=== PATIENT | male | born 1980 | race Caucasian/White ===

== ENCOUNTER 2024-06-13 05:31 | Emergency (ER) | payer MEDICAID ==
[~2024-06-13] VITALS: Ht 195.6 cm; Wt 75.4 kg
[~2024-06-13 05:31] MED LIST: ACET-1008 PO; AZIT-164 PO; BENZ0.5T44 PO; DULO-31 PO; FOLI1TAB27 PO; MIRT45TA79 PO; NO HOME MEDS; OLAN5TAB3 PO; THIA50TA10 PO
[2024-06-13 05:34] VITALS: BP 127/95; PULSE 98; RESP 15; O2SAT 98
[2024-06-13 06:19] VITALS: TEMP 96.8
== END 2024-06-13 06:26 | disposition home or self-care (01) ==
LOC: ER 05:31
DX: M25.561 Pain in right knee (principal); Z91.041 Radiographic dye allergy status; Z79.1 Long term (current) use of non-steroidal anti-inflammatories (NSAID)
CPT/HCPCS: 73560; 99283

== ENCOUNTER 2024-07-05 14:09 | Emergency (ER) | payer MEDICAID ==
[~2024-07-05] VITALS: Ht 195.6 cm; Wt 77.3 kg
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
[2024-07-05] MEDS: OLANZapine **IM** 10 mg inj. IM ONE (14:29)
[2024-07-05] MEDS: LIDOcaine 1% W/epiNEPHrine 1:100,000 20ml vial SQ ONE (14:31)
[2024-07-05] MEDS: TETanus/Pertussis (Acell)/Diphther VAC/PF (Tdap-Adult) 0.5ml syringe IMVAC ONE (14:31)
[2024-07-05] MEDS: LIDOcaine 1% W/epiNEPHrine 1:100,000 20ml vial IJ ONE (14:33)
[2024-07-05 14:52] VITALS: BP 128/78; PULSE 80; RESP 18; TEMP 98.5; O2SAT 98
== END 2024-07-05 14:50 ==
LOC: ER 14:10 → EEVIPCON 14:10 → ER 14:50
DX: S01.412A Laceration without foreign body of left cheek and temporomandibular area, initial encounter (principal); Z91.041 Radiographic dye allergy status; Z79.1 Long term (current) use of non-steroidal anti-inflammatories (NSAID); Z79.899 Other long term (current) drug therapy; X58.XXXA Exposure to other specified factors, initial encounter; Y93.89 Activity, other specified; Y92.89 Other specified places as the place of occurrence of the external cause; Y99.8 Other external cause status
CPT/HCPCS: 12013; 90471; 90715; 96372; 99284; J3490; J7120

== ENCOUNTER 2024-07-27 13:13 | Emergency (ER) | payer MEDICAID ==
[~2024-07-27] VITALS: Ht 195.6 cm; Wt 90.9 kg
[2024-07-27] MEDS: LIDOcaine 1% W/epiNEPHrine 1:100,000 20ml vial SQ ONE (14:02)
--- NOTE | 2024-07-27 14:10 | Physician Documentation ---
History of Present Illness ~ Chief Complaint: Medical Clearance Stated Complaint: MED CLEARANCE Time Seen by MD: 13:21 HPI Patient is seen today with complaints of laceration to his right cheek just under his eye without any involvement of the eyelid. Patient was brought in in police custody to be cleared for penitentiary. Patient has no other concern or complaint at this time. Patient denies any loss of consciousness or traumatic brain injury or loss of memory or headache or chest pain or shortness of breath or abdominal pain or nausea, vomiting, diarrhea. Patient has no other concern or complaint at this time. Tetanus within 5 years?: Yes (2024) Medication Reconciliation Allergies: Coded Allergies: Penicillins (Unverified Allergy, Unknown, 07/27/24) iodine (Unverified Adverse Reaction, Intermediate, blisters on skin, 06/13/24) Scheduled Acetaminophen (Tylenol), 650 MG PO Q4H PRN PAIN, (Reported) Acetaminophen (Tylenol), 650 MG PO Q4H PRN PAIN, (Reported) Acetaminophen (Tylenol), 650 MG PO Q6H PRN TEMPERATURE, (Reported) Acetaminophen (Tylenol), 650 MG PO Q6H PRN PAIN, (Reported) Azithromycin (Zithromax), 1 TAB PO DAILY Benztropine Mesylate (Benztropine Mesylate), 1 TAB PO HS, (Reported) Duloxetine Hcl* (Cymbalta*), 60 MG PO DAILY, (Reported) Folic Acid* (Folic Acid*), 1 MG PO DAILY Mirtazapine (Mirtazapine), 1 TAB PO HS, (Reported) Olanzapine (Zyprexa), 1 TAB PO BID, (Reported) Thiamine HCl (Vitamin B-1), 2 TAB PO DAILY Scheduled PRN Acetaminophen (Tylenol), 1 TAB PO Q4HPRN PRN for pain or fever, (Reported) Miscellaneous Medications Home Med List (No Home Medications), (Reported) Past Medical History Patient History: FH: heart disease Paternal Grandfather Review of Systems Constitutional: Denies: chills, fever, weakness Eyes: Denies: pain, blurred vision ENT: Denies: ear pain, nose pain, throat pain, mouth pain Respiratory: Denies: cough, shortness of breath Cardiovascular: Denies: chest pain, palpitations Gastrointestinal: Denies: abdominal pain, nausea, vomiting Genitourinary: Denies: burning, dysuria Male Genitalia: Denies: penile discharge, testicular pain Neurological: Denies: headache, dizziness Musculoskeletal: Denies: pain, swelling Integumentary: Denies: rash, lesions Allergic/Immunologic: Denies: hives, itching Hematologic/Lymphatic: Denies: no symptoms reported Psychiatric: Denies: depression, anxiety Physical Exam Vital Signs: Temperature: 98.0, Source: Temporal, Heart Rate: 97, Respiratory Rate: 16, BP: 113/71, Pulse Oximetry: 98, Weight: 90.910 Oxygen Flow Rate: 0 Physical Exam General: Awake and Alert, no acute distress. HEENT: Conjunctiva pink, Sclera clear, Mucus Membranes moist. Neck: Supple without masses and tenderness. Resp: Unlabored. Lungs clear to auscultation bilaterally. Heart: Regular Rate and rhythm, normal S1 and S2 without murmur, rub or gallop. Abdomen: Soft and non tender no organomegaly Extremities: No cyanosis,clubbing or edema. Skin: Patient on exam does have 2.5 cm laceration just inferior to right eye without involvement of the eye lid of the right cheek. Bleeding is well controlled. Procedures Laceration/Wound Repair Laceration/Wound Repair : Procedure Note Procedure note: 3 cc of 1% lidocaine with epinephrine was used to achieve local anesthesia of the 2.5 cm laceration below the right eye. Patient tolerated well. Wound was irrigated with copious amounts of normal saline. Running stitch was used to achieve closure. Nonadhesive dressing with bulky bandage applied to cover repair site. Progress Results/Orders Results/Orders Completed Orders - TANESHA SHAW PAC Lidocaine 1% W/Epi 1:100,000 (Xylocaine (07/27/24 13:25) Vital Signs 07/27/24 13:14 Temp 98.0 Pulse 97 Resp 16 B/P (MAP) 113/71 Pulse Ox 98 O2 Flow Rate 0 Medical Decision Making Findings Patient is seen today with complaints of laceration to his right cheek just under his eye without any involvement of the eyelid. Patient was brought in in police custody to be cleared for penitentiary. Patient has no other concern or complaint at this time. Patient denies any loss of consciousness or traumatic brain injury or loss of memory or headache or chest pain or shortness of breath or abdominal pain or nausea, vomiting, diarrhea. Patient has no other concern or complaint at this time. Patient is cleared for incarceration from a medical standpoint and is cleared from laceration that was repaired today. Sutures will need to be removed in seven days. Patient may return to ED or have them removed by his primary care or at the penitentiary. Return to ED with any worsening, concerning or changing symptoms. Departure Disposition: HOME / SELF CARE / HOMELESS Impression: Primary Impression: Laceration Additional Impression: General medical exam Condition: Improved Discharge Instructions: Facial Laceration, [id number], Medical Screening Exam Additional Instructions: Patient is cleared for incarceration from a medical standpoint and is cleared from laceration that was repaired today. Sutures will need to be removed in seven days. Patient may return to ED or have them removed by his primary care or at the penitentiary. Return to ED with any worsening, concerning or changing symptoms. Referrals: NO PRIMARY CARE PROVIDER (PCP) Signature Scribe Signature: No scribe Attestation: No scribe TANESHA SHAW PAC July 27, 2024 14:10
[2024-07-27 14:17] VITALS: BP 102/55; PULSE 71; RESP 16; TEMP 98; O2SAT 98
== END 2024-07-27 14:17 | disposition home or self-care (01) ==
LOC: ER 13:14
DX: S01.411A Laceration without foreign body of right cheek and temporomandibular area, initial encounter (principal); Z88.0 Allergy status to penicillin; Z91.041 Radiographic dye allergy status; Z79.899 Other long term (current) drug therapy; X58.XXXA Exposure to other specified factors, initial encounter; Y93.89 Activity, other specified; Y92.89 Other specified places as the place of occurrence of the external cause; Y99.8 Other external cause status
CPT/HCPCS: 12011; 99283; A6449

== ENCOUNTER 2025-01-16 20:00 | Emergency (ER) | payer MEDICAID ==
[~2025-01-16] VITALS: Ht 195.6 cm; Wt 78.0 kg
[2025-01-16 20:32] VITALS: BP 156/98; PULSE 87; RESP 15; TEMP 97.6; O2SAT 99
--- NOTE | 2025-01-16 21:16 | Physician Documentation ---
History of Present Illness ~ Chief Complaint: Leg Pain Stated Complaint: RIGHT LEG PAIN Time Seen by MD: 21:37 HPI Is a 44-year-old male that presents to the emergency department for evaluation of right leg pain. Patient reports of the leg pain has been present for several months. Patient denies any new injury or trauma. Patient denies any other symptoms at this time. Tetanus witin 5 years: Yes (2024) Medication Reconciliation Allergies: Coded Allergies: Penicillins (Unverified Allergy, Unknown, 01/16/25) iodine (Unverified Adverse Reaction, Intermediate, blisters on skin, 01/16/25) Scheduled Acetaminophen (Tylenol), 650 MG PO Q4H PRN PAIN, (Reported) Acetaminophen (Tylenol), 650 MG PO Q4H PRN PAIN, (Reported) Acetaminophen (Tylenol), 650 MG PO Q6H PRN TEMPERATURE, (Reported) Acetaminophen (Tylenol), 650 MG PO Q6H PRN PAIN, (Reported) Azithromycin (Zithromax), 1 TAB PO DAILY Benztropine Mesylate (Benztropine Mesylate), 1 TAB PO HS, (Reported) Duloxetine Hcl* (Cymbalta*), 60 MG PO DAILY, (Reported) Folic Acid* (Folic Acid*), 1 MG PO DAILY Mirtazapine (Mirtazapine), 1 TAB PO HS, (Reported) Olanzapine (Zyprexa), 1 TAB PO BID, (Reported) Thiamine HCl (Vitamin B-1), 2 TAB PO DAILY Scheduled PRN Acetaminophen (Tylenol), 1 TAB PO Q4HPRN PRN for pain or fever, (Reported) Miscellaneous Medications Home Med List (No Home Medications), (Reported) Past Medical History Patient History: FH: heart disease Paternal Grandfather Review of Systems ROS As stated above in the HPI, otherwise all systems are reviewed and negative. Physical Exam Vital Signs: Temperature: 97.6, Source: Temporal, Heart Rate: 87, Respiratory Rate: 15, BP: 156/98, Pulse Oximetry: 99, Weight: 78.000 Physical Exam VITALS: Reviewed and as above. GENERAL: Alert, no apparent distress. HEENT: Normocephalic, atraumatic, PERRL, EOMI, dry mucosa, no erythema RESPIRATORY: Lungs clear, normal breath sounds, no respiratory distress. CHEST: No accessory muscle use, no retractions CV: Regular rate, rhythm, no edema, no murmur, No: JVD GI: Soft, non-tender, bowels sounds present, no rebound, guarding, or rigidity BACK: No CVA tenderness, or swelling MUSCULOSKELETAL No deformities, no edema SKIN: Warm and dry, no rash NEURO: Oriented x4, No motor or sensory deficit PSYCH: Normal mood and affect, no agitation Progress Results/Orders Results/Orders Vital Signs 01/16/25 20:32 Temp 97.6 Pulse 87 Resp 15 B/P (MAP) 156/98 Pulse Ox 99 Medical Decision Making Additional information obtaine: other Findings 44-year-old male presented for evaluation of chronic right lower tibia and fibula pain persisting for approximately three months. Patient denies trauma, cannot localize pain, and reports no focal tenderness or pain on palpation. No pain medication has been used, and patient does not desire analgesics. On arrival, patient was found sleeping and was difficult to arouse, but became alert with effort. Vital signs are stable and appropriate. Assessment: Chronic lower leg pain in adults may result from a variety of etiologies, including musculoskeletal (e.g., stress fracture, arthritis), vascular (e.g., peripheral artery disease [PAD], venous insufficiency), and neurologic causes ( e.g., nerve entrapment, radiculopathy).The absence of trauma, focal tenderness, and normal physical exam reduce the likelihood of acute fracture, compartment syndrome, or focal soft tissue injury. No findings suggestive of PAD (e.g., claudication, abnormal pulses, ischemic skin changes) or venous disease (e.g., edema, skin changes) were noted.Neurologic causes remain possible but are less likely given the lack of focal symptoms. Medical decision-making: Comprehensive history and physical examination did not reveal evidence of acute pathology requiring intervention. No imaging or laboratory studies were indicated based on current presentation and guidelines. Patient is currently asymptomatic except for chronic pain, with no red flag symptoms (e.g., fever, f ocal neurologic deficit, signs of infection, vascular compromise). Disposition: Patient is medically stable for discharge. He was counseled to follow up with his primary care provider for further outpatient evaluation, including consideration of musculoskeletal and neurologic etiologies if symptoms persist.Return precautions were discussed: patient should return to the emergency department for worsening pain, new focal symptoms, inability to ambulate, or any other concerning developments. Shared decision-making: Patient understands and agrees with the plan. No pain medication requested or provided. General Diff Dx:Considerations: Include: Abrasion, Contusion, Fracture, Hematoma, Laceration, Malunion, Neurovascular injury, Open fracture, Sprain, Ulcer, Other Knee Diff Dx:Considerations: Include: Abrasion, Arthritis, Contusion, DJD, Fracture-femur, Fracture-fibula, Fracture-patella, Fracture-tibia, Gout, Hematoma, Laceration, Meniscus injury, Neurovascular injury, Open fracture, Rheumatoid arthritis, Septic, Sprain, Sprain-MCL, Sprain-LCL, Sprain-ACL, Sprain-PCL, Other Ankle Diff Dx:Considerations: Include: Abrasion, Arthritis, Contusion, DJD, Fracture-metatarsal, Fracture-fibula, Fracture-tarsal, Fracture-tibia, Gout, Hematoma, Laceration, Malunion, Neurovascular injury, Nonunion, Open fracture, Osteomyelitis, Rheumatoid arthritis, Sprain, Septic, Ulcer, Other Foot Diff Dx:Considerations: Include: Abrasion, Arthritis, Cellulitis, Contusion, Dislocation, DJD, Fracture-metatarsal, Fracture-phalynx, Fracture- tarsal, Gout, Hematoma, Ingrown toenail, Laceration, Malunion, Neurovascular injury, Open fracture, Paronychia, Puncture, Rheumatoid, Sprain, Septic, Subungual hematoma, Ulcer, Other Toe Diff Dx:Considerations: Include: Abrasion, Cellulitis, Contusion, Dislocation, Felon, Fracture, Hematoma, Laceration, Neurovascular injury, Open fracture, Paronychia, Subungual hematoma, Other Departure Disposition: 01 HOME / SELF CARE / HOMELESS Impression: Primary Impression: Superficial bruising Condition: Stable Discharge Instructions: RICE Therapy for Routine Care of Injuries, [id number] Additional Instructions: You came to the emergency department for pain in your right lower leg that has lasted about three months. There was no injury, and the exam did not show any areas of tenderness or swelling. You do not want pain medication at this time. What to expect: Most causes of long-lasting leg pain without injury or swelling are not serious and can be managed at home. It is important to rest your leg and avoid activities that make the pain worse. If you notice swelling, redness, warmth, or changes in skin color, let your doctor know. What you should do next: Follow up with your primary care provider for further evaluation. They may recommend tests or refer you to a specialist if needed. If you develop new symptoms, such as severe pain, inability to walk, fever, numbness, weakness, or changes in skin color, return to the emergency department right away. General advice: You do not need to take pain medication unless you want to. Try gentle stretching or rest as needed. Keep track of your symptoms and let your doctor know if anything changes. If you have any questions or concerns, or if your symptoms get worse, please come back to the emergency department or contact your doctor. Referrals: NO PRIMARY CARE PROVIDER (PCP) Education Educated: Patient Educated regarding: diagnosis, treatment, need for follow up Signature Scribe Signature: A Attestation: Scribed for Alyssa Diamond by MONICA Guo . 01/16/25 22:27 ALYSSA DIAMOND Jan 16, 2025 21:16
== END 2025-01-16 22:53 | disposition home or self-care (01) ==
LOC: ER 20:00
DX: S80.11XA Contusion of right lower leg, initial encounter (principal); Z88.0 Allergy status to penicillin; Z88.8 Allergy status to other drugs, medicaments and biological substances; X58.XXXA Exposure to other specified factors, initial encounter; Y93.89 Activity, other specified; Y92.89 Other specified places as the place of occurrence of the external cause; Y99.8 Other external cause status
CPT/HCPCS: 99282

== ENCOUNTER 2025-02-01 23:34 | Emergency (ER) | payer MEDICAID ==
[~2025-02-01] VITALS: Ht 195.6 cm; Wt 91.4 kg
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
[2025-02-01 23:46] VITALS: BP 132/92; PULSE 103; RESP 18; O2SAT 92
== END 2025-02-02 00:01 ==
LOC: ER 23:34
DX: S40.021A Contusion of right upper arm, initial encounter (principal); S40.011A Contusion of right shoulder, initial encounter; G89.11 Acute pain due to trauma; Z88.0 Allergy status to penicillin; Z88.8 Allergy status to other drugs, medicaments and biological substances; Z79.899 Other long term (current) drug therapy; X58.XXXA Exposure to other specified factors, initial encounter; Y93.89 Activity, other specified; Y92.89 Other specified places as the place of occurrence of the external cause; Y99.8 Other external cause status
CPT/HCPCS: 99283